=== PATIENT | male | born 1960 | race Hispanic/Latino ===

== ENCOUNTER → 2017-11-08 | Outpatient (CLI) | payer MEDICAID | LOC: RAH 11:30 | PROVIDERS: ATTEND Urology | DX: N20.0 Calculus of kidney (principal); N32.89 Other specified disorders of bladder | CPT/HCPCS: 74176 ==

== ENCOUNTER → 2018-06-18 | Outpatient (CLI) | payer MEDICAID | END | disposition home or self-care (01) | LOC: RAH 11:39 | PROVIDERS: ATTEND Urology | DX: M47.899 Other spondylosis, site unspecified (principal); I25.10 Atherosclerotic heart disease of native coronary artery without angina pectoris | CPT/HCPCS: 74018; 76100 ==

== ENCOUNTER → 2018-11-13 | Outpatient (CLI) | payer MEDICAID | END | disposition home or self-care (01) | LOC: SHCH 14:13 | PROVIDERS: ATTEND Internal Medicine Cardiovascular Disease | DX: I87.2 Venous insufficiency (chronic) (peripheral) (principal) | CPT/HCPCS: 93970 ==

== ENCOUNTER → 2019-05-14 | Outpatient (CLI) | payer MEDICAID | END | disposition home or self-care (01) | LOC: RAH 12:13 | PROVIDERS: ATTEND Urology | DX: N20.0 Calculus of kidney (principal); K80.20 Calculus of gallbladder without cholecystitis without obstruction; K57.30 Diverticulosis of large intestine without perforation or abscess without bleeding | CPT/HCPCS: 74176 ==

== ENCOUNTER → 2019-07-17 | Outpatient (CLI) | payer MEDICAID | END | disposition home or self-care (01) | LOC: RAH 11:38 | PROVIDERS: ATTEND Urology | DX: N20.0 Calculus of kidney (principal) | CPT/HCPCS: 74018; 76100 ==

== ENCOUNTER 2020-03-16 08:19 | Inpatient (IN) | payer MEDICAID ==
[~2020-03-16] VITALS: Ht 167.6 cm; Wt 104.5 kg
[2020-03-16] MEDS ORDERED: ONDANSETRON HCL 4 MG/2 ML VIAL ONE (08:51)
[2020-03-16] MEDS ORDERED: LEVOFLOXACIN 500 MG/D5W 100 ML 100 ML ONE (08:52)
[2020-03-16] MEDS: ASCORBIC ACID 500 MG TAB PO SCH (13:45)
[2020-03-16] MEDS: THIAMINE HCL 100 MG TABLET PO SCH (13:45)
[2020-03-16] MEDS ORDERED: HYDRALAZINE HCL 20 MG/ML VIAL IV PRN (14:00)
[2020-03-16] MEDS ORDERED: THIAMINE HCL 100 MG TABLET ONE (14:04)
[2020-03-16] MEDS ORDERED: METHYLPREDNISOLONE SOD SUCC 40MG/ML 1ML ONE (14:35)
[2020-03-16] MEDS ORDERED: INSULIN GLARGINE 100 UNITS/ML 10 ML VIAL SQ SCH (15:00)
[2020-03-16] MEDS ORDERED: INSULIN HUMULIN R 100 UNIT/ML 3ML ONE (17:42)
[2020-03-16] MEDS ORDERED: METHYLPREDNISOLONE SOD SUCC 40MG/ML 1ML IVP SCH (21:00)
[2020-03-17] MEDS ORDERED: METHYLPREDNISOLONE SOD SUCC 40MG/ML 1ML ONE ×3 (03:58→21:48)
[2020-03-17] MEDS ORDERED: ENOXAPARIN SODIUM 40 MG/0.4 ML SYRINGE SQ ONE ×2 (03:58→08:00)
[2020-03-17] MEDS ORDERED: INSULIN HUMULIN R 100 UNIT/ML 3ML ONE ×2 (03:59→23:10)
[2020-03-17] MEDS ORDERED: LEVOFLOXACIN 500 MG/D5W 100 ML 100 ML ONE (08:00)
[2020-03-17] MEDS ORDERED: THIAMINE HCL 100 MG TABLET ONE (08:00)
[2020-03-17] MEDS ORDERED: INSULIN GLARGINE 100 UNITS/ML 10 ML VIAL SQ SCH (09:00)
--- NOTE | 2020-03-17 10:47 | NUR ---
DCP: HOME Sw unable to meet with pt who is in ER covid unit. Per pt's brother Casey Galloway [phone], pt lives with sister & brother in law Sarah Beth & James Ward. Pt has never or had kids. Pt is on SSD since 2014 and is independent, no in home care services, uses [facility], family or friends transport as needed. PCP is Dr Butler and uses [facility] for rx. Plan is home with family Addendum: 03/17/20 at 1050 by AMANDA PERDUE Amended: Links added.
[2020-03-17] MEDS ORDERED: SODIUM CHLORIDE 0.9% 1000ML 1,000 ML IV ONE (21:46)
[2020-03-18] MEDS ORDERED: METHYLPREDNISOLONE SOD SUCC 40MG/ML 1ML ONE (04:13)
[2020-03-18] MEDS ORDERED: ENOXAPARIN SODIUM 40 MG/0.4 ML SYRINGE SQ ONE (04:13)
[2020-03-18] MEDS ORDERED: THIAMINE HCL 100 MG TABLET ONE (07:44)
[2020-03-18] MEDS ORDERED: LEVOFLOXACIN 500 MG/D5W 100 ML 100 ML ONE (07:45)
[2020-03-18] MEDS: LEVOFLOXACIN 500 MG/D5W 100 ML 100 ML IV SCH (08:00)
[2020-03-18] MEDS: ENOXAPARIN SODIUM 40 MG/0.4 ML SYRINGE SQ SCH (09:00)
[2020-03-18] MEDS: THIAMINE HCL 100 MG TABLET PO SCH ×2 (09:00→13:45)
[2020-03-18] MEDS: METHYLPREDNISOLONE SOD SUCC 40MG/ML 1ML IVP SCH ×2 (09:00→17:48)
[2020-03-18] MEDS: ASCORBIC ACID 500 MG TAB PO SCH ×2 (09:00→13:45)
[2020-03-18] MEDS: INSULIN HUMULIN R 100 UNIT/ML 3ML SQ SCH ×3 (11:30→20:24)
[2020-03-18 14:50] VITALS: BP 156/78; PULSE 84; RESP 20; TEMP 96
[2020-03-18 17:44] VITALS: TEMP 98
[2020-03-18] MEDS: SODIUM CHLORIDE 0.9% 1000ML 1,000 ML IV SCH (17:44)
[2020-03-18 19:30] VITALS: BP 138/78; PULSE 89; RESP 18; TEMP 97.9
--- NOTE | 2020-03-18 20:15 | NUR ---
plasma #1 start first unit of plasma temp 96.9 pulse 87, resp 18 b/p 160/70,sat 94 % on oxygen at 3 l n/c
--- NOTE | 2020-03-18 20:30 | NUR ---
effect temp 96.9 p 86 r 18 b/p 154/80, sat 94 on 3 l n/c
--- NOTE | 2020-03-18 20:34 | NUR ---
b/p b/p 189/84, asymptomatic , hydralazine 10 mg ivp given slowly
--- NOTE | 2020-03-18 21:30 | NUR ---
med effect b/p 155/80
--- NOTE | 2020-03-18 22:15 | NUR ---
post transfusion first unit of plasma complete , no reaction noted, tolerated well, blood bank called for 2 nd unit, temp 96.8 pulse89 r18 b/p 152/84
--- NOTE | 2020-03-18 23:45 | NUR ---
2nd unit plasma started 2nd unit of plasma as ordered, tem p96.8 f pulse 80 r 18 b/p 144/69
[2020-03-19] VITALS (7 sets, daily range): BP systolic 134–175; BP diastolic 67–85; PULSE 65–93; RESP 17–20; TEMP 97–98.4
--- NOTE | 2020-03-19 | NUR ---
effect no reaction noted, tolerating well, temp 97.0 f pulse 82 r 18 b/p 144/83
[2020-03-19] MEDS: METHYLPREDNISOLONE SOD SUCC 40MG/ML 1ML IVP SCH ×3 (00:13→16:09)
--- NOTE | 2020-03-19 01:45 | NUR ---
complete transfusion plasma complete, no reaction noted, temp 96.9, pulse 81/ r 18 b/p 148/80
[2020-03-19] MEDS: INSULIN HUMULIN R 100 UNIT/ML 3ML SQ SCH ×4 (05:50→21:46)
[2020-03-19] MEDS: SODIUM CHLORIDE 0.9% 1000ML 1,000 ML IV SCH ×2 (08:55→16:09)
[2020-03-19] MEDS: LEVOFLOXACIN 500 MG/D5W 100 ML 100 ML IV SCH (09:01)
[2020-03-19] MEDS: ASCORBIC ACID 500 MG TAB PO SCH (09:02)
[2020-03-19] MEDS: THIAMINE HCL 100 MG TABLET PO SCH ×2 (09:02→13:23)
[2020-03-19] MEDS: ENOXAPARIN SODIUM 40 MG/0.4 ML SYRINGE SQ SCH ×2 (10:52→21:48)
--- NOTE | 2020-03-19 12:18 | NUR ---
C consult Spoke with patient's nurse regarding abrasions to bilateral lower extremities. Nurse reports they are scabbed over and without drainage; no wound care required at this time. May reconsult [facility] as needed.
[2020-03-19] MEDS ORDERED: DEXTROSE 50%-WATER 50 ML DISP.SYRIN IV PRN (12:30)
[2020-03-19] MEDS ORDERED: INSULIN GLARGINE 100 UNITS/ML 10 ML VIAL SQ SCH (12:30)
[2020-03-19] MEDS ORDERED: GLUCAGON 1MG KIT 1 MG ML IM PRN (12:30)
[2020-03-19] MEDS ORDERED: INSULIN HUMULIN R 100 UNIT/ML 3ML SQ SCH (17:00)
[2020-03-19] MEDS: INSULIN GLARGINE 100 UNITS/ML 10 ML VIAL SQ SCH (21:47)
[2020-03-20] MEDS: METHYLPREDNISOLONE SOD SUCC 40MG/ML 1ML IVP SCH ×3 (00:16→18:05)
[2020-03-20 03:06] VITALS: BP 152/76; PULSE 67; RESP 17; TEMP 98
[2020-03-20] MEDS: INSULIN GLARGINE 100 UNITS/ML 10 ML VIAL SQ SCH ×2 (05:51→21:50)
[2020-03-20] MEDS: INSULIN HUMULIN R 100 UNIT/ML 3ML SQ SCH ×7 (05:51→21:49)
[2020-03-20 08:00] VITALS: BP 147/80; PULSE 67; RESP 17; TEMP 98.1
[2020-03-20] MEDS: LEVOFLOXACIN 500 MG/D5W 100 ML 100 ML IV SCH (09:32)
[2020-03-20] MEDS: AMLODIPINE BESYLATE 5 MG TAB PO SCH (09:33)
[2020-03-20] MEDS: ASCORBIC ACID 500 MG TAB PO SCH (09:33)
[2020-03-20] MEDS: THIAMINE HCL 100 MG TABLET PO SCH ×2 (09:34→11:47)
[2020-03-20] MEDS: ENOXAPARIN SODIUM 40 MG/0.4 ML SYRINGE SQ SCH (09:34)
[2020-03-20 12:00] VITALS: BP 150/71; PULSE 80; RESP 18; TEMP 98.5
[2020-03-20 16:00] VITALS: BP 142/72; PULSE 84; RESP 17; TEMP 98.4
[2020-03-20 20:42] VITALS: BP 145/85; PULSE 80; RESP 18; TEMP 97.4
[2020-03-20 23:52] VITALS: BP 134/71; PULSE 79; RESP 18; TEMP 97.8
[2020-03-21] MEDS: METHYLPREDNISOLONE SOD SUCC 40MG/ML 1ML IVP SCH ×3 (02:20→17:00)
[2020-03-21 03:50] VITALS: BP 157/75; PULSE 65; RESP 18; TEMP 97.9
[2020-03-21] MEDS: INSULIN HUMULIN R 100 UNIT/ML 3ML SQ SCH ×7 (06:40→21:47)
[2020-03-21] MEDS: INSULIN GLARGINE 100 UNITS/ML 10 ML VIAL SQ SCH ×2 (06:41→21:48)
[2020-03-21 08:46] VITALS: BP 139/92; PULSE 85; RESP 18; TEMP 97.9
[2020-03-21] MEDS: ASCORBIC ACID 500 MG TAB PO SCH (08:54)
[2020-03-21] MEDS: AMLODIPINE BESYLATE 5 MG TAB PO SCH (08:55)
[2020-03-21] MEDS: LEVOFLOXACIN 500 MG/D5W 100 ML 100 ML IV SCH (08:55)
[2020-03-21] MEDS: THIAMINE HCL 100 MG TABLET PO SCH ×2 (08:55→14:32)
[2020-03-21] MEDS ORDERED: ENOXAPARIN SODIUM 40 MG/0.4 ML SYRINGE SQ SCH (09:00)
[2020-03-21] MEDS: ENOXAPARIN SODIUM 60 MG/0.6 ML SQ SCH (09:09)
[2020-03-21 12:48] VITALS: BP 136/83; PULSE 84; RESP 18; TEMP 97.9
[2020-03-21 16:34] VITALS: BP 129/79; PULSE 90; RESP 18; TEMP 97.6
--- NOTE | 2020-03-21 18:55 | NUR ---
COVID+ PT, ISOLATION PRECAUTIONS MAINTAINED. AAOX4. ABLE TO MAKE NEEDS KNOWN. AMBULATES WITH [facility]ALK[facility] WITH STANDBY ASSIST. O2 AT 2L PRN. OOB IN CHAIR AT THIS TIME WATCHING TELEVISION. NO APPARENT DISTRESS NOTED. SAFETY MEASURES IN PLACE. CM CONSULT FOR POSSIBLE NH PLACEMENT.
[2020-03-21 20:14] VITALS: BP 140/77; PULSE 86; RESP 18; TEMP 97.8
[2020-03-21 23:45] VITALS: BP 154/79; PULSE 85; RESP 18; TEMP 98
[2020-03-22] MEDS: METHYLPREDNISOLONE SOD SUCC 40MG/ML 1ML IVP SCH ×3 (00:56→17:00)
[2020-03-22 03:52] VITALS: BP 158/81; PULSE 70; RESP 18; TEMP 98.1
[2020-03-22] MEDS: INSULIN HUMULIN R 100 UNIT/ML 3ML SQ SCH ×6 (06:36→17:00)
[2020-03-22] MEDS: INSULIN GLARGINE 100 UNITS/ML 10 ML VIAL SQ SCH (06:37)
[2020-03-22 08:00] VITALS: BP 163/78; PULSE 91; RESP 17; TEMP 97.7
[2020-03-22] MEDS: ASCORBIC ACID 500 MG TAB PO SCH (09:03)
[2020-03-22] MEDS: AMLODIPINE BESYLATE 5 MG TAB PO SCH (09:03)
[2020-03-22] MEDS: LEVOFLOXACIN 500 MG/D5W 100 ML 100 ML IV SCH (09:03)
[2020-03-22] MEDS: THIAMINE HCL 100 MG TABLET PO SCH (09:03)
[2020-03-22] MEDS: ENOXAPARIN SODIUM 60 MG/0.6 ML SQ SCH (09:04)
[2020-03-22 12:00] VITALS: BP 130/77; PULSE 86; RESP 17; TEMP 98.7
--- NOTE | 2020-03-22 12:30 | NUR ---
SITTING UP IN BED EATING LUNCH, W/O C/O.
--- NOTE | 2020-03-22 17:00 | NUR ---
HL REMOVED, CATHETER INTACT.
--- NOTE | 2020-03-22 17:30 | NUR ---
SITTING UP IN EMERGENCY MANAGEMENT SPECIALIST AT BEDSIDE EATING DINNER W/O C/O. CALL LIGHT WITHIN REACH.
--- NOTE | 2020-03-22 18:05 | NUR ---
DISCHARGE INSTRUCTIONS GIVEN, PT. VERBALIZED UNDERSTANDING. STATES FRIEND WILL BE PICKING HIM UP, BUT HE IS "BUSY RIGHT NOW. HE'LL BE HERE IN A COUPLE OF HOURS."
== END 2020-03-22 21:05 | disposition home or self-care (01) | DRG 137 ==
LOC: EDH 08:19 → EDHIP 08:20 → 4AH 03-18 14:31
PROVIDERS: ADMIT Internal Medicine; ATTEND Internal Medicine
PROC: 30233K1 Transfusion of Nonautologous Frozen Plasma into Peripheral Vein, Percutaneous Approach (ICD-10-PCS; principal; 2020-03-16)
DX: U07.1 COVID-19 (principal); J96.01 Acute respiratory failure with hypoxia; J12.89 Other viral pneumonia; A08.39 Other viral enteritis; E11.65 Type 2 diabetes mellitus with hyperglycemia; J02.0 Streptococcal pharyngitis; E66.01 Morbid (severe) obesity due to excess calories; I10 Essential (primary) hypertension; E78.5 Hyperlipidemia, unspecified; Z68.37 Body mass index [BMI] 37.0-37.9, adult; Z88.6 Allergy status to analgesic agent; Z88.0 Allergy status to penicillin; Z78.9 Other specified health status; Z87.442 Personal history of urinary calculi

== ENCOUNTER → 2021-01-28 | Outpatient (CLI) | payer MEDICAID ==
[~2021-01-28] MED LIST: AMLO5TAB4 PO; ASCO500T20 PO; DEXA6TAB PO; LEVO500T2 PO; THIA100T91 PO
== END | disposition home or self-care (01) ==
LOC: SHCH 09:57
PROVIDERS: ATTEND Internal Medicine Cardiovascular Disease
DX: I87.2 Venous insufficiency (chronic) (peripheral) (principal); I73.9 Peripheral vascular disease, unspecified
CPT/HCPCS: 93925; 93970

== ENCOUNTER 2023-11-18 07:48 | Inpatient (IN) | payer MEDICAID ==
[~2023-11-18] VITALS: Ht 167.6 cm; Wt 104.3 kg
[~2023-11-18 07:48] MED LIST changes: +ALLO100T PO; +ATOR20TA65 PO; +CLOP75TA32 PO; -DEXA6TAB PO; +FURO40TA5 PO; +GABA-529 PO; +INSLAN SQ; -LEVO500T2 PO; +LISI20TA24 PO; +MEMA5TAB42 PO; +METF-446 PO; +METO50TA9 PO; +TAMSULOSIN PO; +VITA200C23 PO; +VITA800012 PO; +ZINC220T4 PO
[2023-11-18 08:14] LABS: BASOPHILS # (AUTO) 0.03 K/uL (0.00-0.20); BASOPHILS % (AUTO) 0.4 % (0.0-5.0); EOSINOPHILS # (AUTO) 0.15 K/uL (0.00-0.70); EOSINOPHILS % (AUTO) 2.2 % (0.0-8.0); HEMATOCRIT 41.7 % (42-54); IMMATURE GRANULOCYTE ABSOLUTE 0.02 K/uL (0-1); LYMPHOCYTES # (AUTO) 0.9 K/uL (1.0-4.8); MEAN CORPUSCULAR HEMOGLOBIN 29.6 pg (27.0-33.0); MEAN CORPUSCULAR HGB CONC 33.1 g/dL (32.0-36.0); MEAN CORPUSCULAR VOLUME 89.5 fL (79-99); MONOCYTES # (AUTO) 0.4 K/uL (0.1-1.0); MONOCYTES % (AUTO) 6.1 % (3.0-13.0); NEUTROPHILS # (AUTO) 5.4 K/uL (1.8-7.7); PLATELET COUNT (AUTO) 208 K/uL (130-400); RED BLOOD CELL COUNT(AUTO) 4.66 MIL/uL (4.50-6.20); RED CELL DISTRIBUTION WIDTH 14.2 % (11.0-15.5); WHITE BLOOD COUNT (AUTO) 6.9 K/uL (4.8-10.8)
[2023-11-18] MEDS: ONDANSETRON 4MG INJ IVP ONE (08:20)
[2023-11-18 08:24] LABS: CREATININE 0.8 mg/dL (0.5-1.5); POTASSIUM 3.8 mmol/L (3.5-5.1)
[2023-11-18 08:29] LABS: BILIRUBIN,TOTAL 0.7 mg/dL (0.2-1.0); TOTAL PROTEIN, SERUM 8.3 g/dL (6.0-8.3)
[2023-11-18] MEDS: METOCLOPRAMIDE 10 MG/2 ML VIAL IM ONE (09:01)
[2023-11-18] MEDS: METOCLOPRAMIDE 10 MG/2 ML VIAL IVP ONE (09:03)
[2023-11-18 10:06] LABS: APPEARANCE,URINE CLOUDY (CLEAR); BILIRUBIN,URINE NEGATIVE (NEGATIVE); COLOR,URINE YELLOW (YELLOW); GLUCOSE, URINE (UA) NEGATIVE (NEGATIVE); KETONES,URINE 20 mg/dL (NEGATIVE); LEUKOCYTE ESTERASE ,URINE 500 Leu/uL (NEGATIVE); NITRATE,URINE NEGATIVE (NEGATIVE); PROTEIN,URINE 100 mg/dL (NEGATIVE)
[2023-11-18 10:08] LABS: ADD UA MICROSCOPIC YES
[2023-11-18 10:23] LABS: BACTERIA,URINE MANY /HPF (None Seen); MUCUS,URINE FEW LPF (None Seen); SQUAMOUS EPITHELIAL CELL,UR RARE /HPF (0-2); WBC,URINE TNTC /HPF (0-1)
[2023-11-18] MEDS: CEFTRIAXONE 2GM VIAL IVPB ONE (11:22)
[2023-11-18] MEDS ORDERED: ACETAMINOPHEN 325 MG TAB PO PRN (11:30)
[2023-11-18] MEDS ORDERED: POTASSIUM CHLORIDE 20MEQ/100ML 100 ML IV PRN (11:30)
[2023-11-18] MEDS ORDERED: ONDANSETRON 4MG INJ IVP PRN (11:30)
[2023-11-18] MEDS: CEFTRIAXONE 1G VIAL IVPB SCH (13:00)
[2023-11-18 14:19] VITALS: BP 146/80; PULSE 84; RESP 17
[2023-11-18 14:22] VITALS: O2SAT 97
[2023-11-18 16:00] VITALS: BP 149/75; PULSE 69; RESP 17
[2023-11-18] MEDS ORDERED: ATEN25TA PO (18:43)
[2023-11-18] MEDS ORDERED: DOCU100C33 PO (18:46)
[2023-11-18] MEDS ORDERED: FINA5TAB41 PO (18:47)
[2023-11-18 20:00] VITALS: BP 133/68; PULSE 89; RESP 17
[2023-11-18] MEDS: ATENOLOL 25 MG TABLET PO SCH (20:24)
[2023-11-18] MEDS: GABAPENTIN 100 MG CAPSULE PO SCH (20:24)
[2023-11-18] MEDS: FAMOTIDINE 20MG TAB PO SCH (20:24)
[2023-11-18] MEDS: ATORVASTATIN 20 MG TABLET PO SCH (20:24)
[2023-11-18 20:25] VITALS: O2SAT 97
[2023-11-19] VITALS (8 sets, daily range): BP systolic 123–152; BP diastolic 44–93; PULSE 73–89; RESP 16–20; O2SAT 94–95
[2023-11-19 04:55] LABS: BASOPHILS # (AUTO) 0.04 K/uL (0.00-0.20); BASOPHILS % (AUTO) 0.6 % (0.0-5.0); EOSINOPHILS % (AUTO) 4.5 % (0.0-8.0); HEMATOCRIT 37.4 % (42-54); IMMATURE GRANULOCYTE ABSOLUTE 0.03 K/uL (0-1); LYMPHOCYTES # (AUTO) 1.4 K/uL (1.0-4.8); LYMPHOCYTES % (AUTO) 20.7 % (21.0-51.0); MEAN CORPUSCULAR HEMOGLOBIN 29.8 pg (27.0-33.0); MEAN CORPUSCULAR HGB CONC 32.6 g/dL (32.0-36.0); MEAN CORPUSCULAR VOLUME 91.4 fL (79-99); MONOCYTES # (AUTO) 0.6 K/uL (0.1-1.0); MONOCYTES % (AUTO) 8.8 % (3.0-13.0); NEUTROPHILS # (AUTO) 4.3 K/uL (1.8-7.7); PLATELET COUNT (AUTO) 191 K/uL (130-400); RED BLOOD CELL COUNT(AUTO) 4.09 MIL/uL (4.50-6.20); WHITE BLOOD COUNT (AUTO) 6.7 K/uL (4.8-10.8)
[2023-11-19 05:11] LABS: ALBUMIN 3.1 g/dL (3.5-5.0); BILIRUBIN,TOTAL 0.5 mg/dL (0.2-1.0); CREATININE 0.9 mg/dL (0.5-1.5); MAGNESIUM 1.8 mg/dL (1.80-2.40); POTASSIUM 3.4 mmol/L (3.5-5.1); TOTAL PROTEIN, SERUM 6.8 g/dL (6.0-8.3)
[2023-11-19] MEDS: KCL 20 MEQ ERTAB PO PRN (05:41)
[2023-11-19] MEDS: MAGNESIUM 2GM PREMIX 50ML 50 ML IV PRN (05:41)
[2023-11-19] MEDS: DOCUSATE SODIUM 100 MG CAP PO SCH (08:44)
[2023-11-19] MEDS: METFORMIN HCL 850 MG TABLET PO SCH (08:44)
[2023-11-19] MEDS: INSULIN GLARGINE 100 UNITS/ML 10 ML VIAL SQ SCH (08:44)
[2023-11-19] MEDS: FINASTERIDE 5 MG TABLET PO SCH (08:45)
[2023-11-19] MEDS: LISINOPRIL 20 MG TABLET PO SCH (08:45)
[2023-11-19] MEDS: ALLOPURINOL 100 MG TABLET PO SCH (08:45)
[2023-11-19] MEDS: CLOPIDOGREL 75MG TAB PO SCH (08:45)
[2023-11-19] MEDS: TAMSULOSIN HCL 0.4 MG CAP.ER.24H PO SCH (08:45)
[2023-11-19] MEDS: ENOXAPARIN SODIUM 30 MG/0.3 ML SQ SCH (08:46)
[2023-11-19] MEDS: 0.9%NACL 1000ML 1,000 ML IV SCH (17:02)
[2023-11-20] VITALS (7 sets, daily range): BP systolic 134–169; BP diastolic 54–96; PULSE 64–71; RESP 17–20; O2SAT 95
[2023-11-20 05:07] LABS: BASOPHILS # (AUTO) 0.04 K/uL (0.00-0.20); BASOPHILS % (AUTO) 0.6 % (0.0-5.0); EOSINOPHILS # (AUTO) 0.33 K/uL (0.00-0.70); EOSINOPHILS % (AUTO) 5.1 % (0.0-8.0); HEMATOCRIT 36.8 % (42-54); IMMATURE GRANULOCYTE ABSOLUTE 0.03 K/uL (0-1); LYMPHOCYTES # (AUTO) 1.5 K/uL (1.0-4.8); LYMPHOCYTES % (AUTO) 22.8 % (21.0-51.0); MEAN CORPUSCULAR HEMOGLOBIN 29.4 pg (27.0-33.0); MEAN CORPUSCULAR HGB CONC 32.1 g/dL (32.0-36.0); MEAN CORPUSCULAR VOLUME 91.8 fL (79-99); MONOCYTES # (AUTO) 0.5 K/uL (0.1-1.0); MONOCYTES % (AUTO) 7.9 % (3.0-13.0); NEUTROPHILS # (AUTO) 4.1 K/uL (1.8-7.7); NEUTROPHILS % (AUTO) 63.1 % (40.0-77.0); PLATELET COUNT (AUTO) 178 K/uL (130-400); RED BLOOD CELL COUNT(AUTO) 4.01 MIL/uL (4.50-6.20); RED CELL DISTRIBUTION WIDTH 14.1 % (11.0-15.5); WHITE BLOOD COUNT (AUTO) 6.5 K/uL (4.8-10.8)
[2023-11-20 05:37] LABS: ALBUMIN 2.9 g/dL (3.5-5.0); BILIRUBIN,TOTAL 0.3 mg/dL (0.2-1.0); CREATININE 0.7 mg/dL (0.5-1.5); MAGNESIUM 2.1 mg/dL (1.80-2.40); POTASSIUM 3.7 mmol/L (3.5-5.1); TOTAL PROTEIN, SERUM 6.5 g/dL (6.0-8.3)
[2023-11-20] MEDS: INSULIN HUMULIN R 100 UNIT/ML 3ML SQ SCH (16:30)
[2023-11-21] VITALS (7 sets, daily range): BP systolic 132–158; BP diastolic 55–81; PULSE 67–79; RESP 17–20; O2SAT 95
[2023-11-21 06:03] LABS: HEMATOCRIT 36.6 % (42-54); MEAN CORPUSCULAR HEMOGLOBIN 28.9 pg (27.0-33.0); MEAN CORPUSCULAR HGB CONC 32.8 g/dL (32.0-36.0); MEAN CORPUSCULAR VOLUME 88.2 fL (79-99); RED BLOOD CELL COUNT(AUTO) 4.15 MIL/uL (4.50-6.20); RED CELL DISTRIBUTION WIDTH 13.8 % (11.0-15.5); WHITE BLOOD COUNT (AUTO) 7.9 K/uL (4.8-10.8)
[2023-11-21 06:21] LABS: CREATININE 0.8 mg/dL (0.5-1.5); MAGNESIUM 1.6 mg/dL (1.80-2.40); POTASSIUM 3.5 mmol/L (3.5-5.1)
[2023-11-21 19:08] LABS: INR 0.94 (0.85-1.15); PROTHROMBIN TIME 10.9 SEC (9.6-11.6)
[2023-11-21 19:09] LABS: PARTIAL THROMBOPLASTIN TIME 29.2 SEC (26.3-35.5)
[2023-11-22] VITALS (9 sets, daily range): BP systolic 106–146; BP diastolic 48–83; PULSE 70–81; RESP 16–18; O2SAT 95
[2023-11-22 05:14] LABS: BASOPHILS # (AUTO) 0.03 K/uL (0.00-0.20); BASOPHILS % (AUTO) 0.4 % (0.0-5.0); EOSINOPHILS # (AUTO) 0.39 K/uL (0.00-0.70); EOSINOPHILS % (AUTO) 4.9 % (0.0-8.0); HEMATOCRIT 38.1 % (42-54); IMMATURE GRANULOCYTE ABSOLUTE 0.04 K/uL (0-1); LYMPHOCYTES # (AUTO) 1.3 K/uL (1.0-4.8); LYMPHOCYTES % (AUTO) 16.3 % (21.0-51.0); MEAN CORPUSCULAR HEMOGLOBIN 29.2 pg (27.0-33.0); MEAN CORPUSCULAR HGB CONC 33.3 g/dL (32.0-36.0); MEAN CORPUSCULAR VOLUME 87.6 fL (79-99); MONOCYTES # (AUTO) 0.4 K/uL (0.1-1.0); MONOCYTES % (AUTO) 5.2 % (3.0-13.0); NEUTROPHILS # (AUTO) 5.8 K/uL (1.8-7.7); NEUTROPHILS % (AUTO) 72.7 % (40.0-77.0); PLATELET COUNT (AUTO) 195 K/uL (130-400); RED BLOOD CELL COUNT(AUTO) 4.35 MIL/uL (4.50-6.20); RED CELL DISTRIBUTION WIDTH 13.5 % (11.0-15.5)
[2023-11-22 05:20] LABS: CREATININE 0.6 mg/dL (0.5-1.5); MAGNESIUM 1.9 mg/dL (1.80-2.40); POTASSIUM 3.4 mmol/L (3.5-5.1)
[2023-11-22] MEDS: POTASSIUM CHLORIDE 10% ELIXIR 20 MEQ/15 ML UDCUP PO PRN (05:45)
[2023-11-23 04:00] VITALS: BP 142/70; PULSE 71; RESP 20
[2023-11-23 08:00] VITALS: BP 134/48; PULSE 74; RESP 19; O2SAT 94
== END 2023-11-23 11:50 | DRG 463 ==
LOC: EDH 07:48 → EDHIP 07:49 → 3AH 13:10
PROVIDERS: ADMIT Internal Medicine Infectious Disease; ATTEND Internal Medicine Infectious Disease
DX: N39.0 Urinary tract infection, site not specified (principal); E11.43 Type 2 diabetes mellitus with diabetic autonomic (poly)neuropathy; G30.9 Alzheimer's disease, unspecified; K31.84 Gastroparesis; F02.80 Dementia in other diseases classified elsewhere, unspecified severity, without behavioral disturbance, psychotic disturbance, mood disturbance, and anxiety; E78.00 Pure hypercholesterolemia, unspecified; B96.20 Unspecified Escherichia coli [E. coli] as the cause of diseases classified elsewhere; W18.39XA Other fall on same level, initial encounter; N20.0 Calculus of kidney; K80.20 Calculus of gallbladder without cholecystitis without obstruction; I10 Essential (primary) hypertension; K57.30 Diverticulosis of large intestine without perforation or abscess without bleeding; K40.90 Unilateral inguinal hernia, without obstruction or gangrene, not specified as recurrent; K42.9 Umbilical hernia without obstruction or gangrene; S80.211A Abrasion, right knee, initial encounter; S80.212A Abrasion, left knee, initial encounter; N40.0 Benign prostatic hyperplasia without lower urinary tract symptoms; Z87.442 Personal history of urinary calculi; Y93.89 Activity, other specified; Y92.89 Other specified places as the place of occurrence of the external cause; Y99.8 Other external cause status
CPT/HCPCS: 36415; 36569; 74176; 80048; 80053; 81001; 82948; 83036; 83605; 83690; 83735; 84484; 85025; 85027; 85610; 85730; 87040; 87077; 87088; 87186; 93005; 93970; 96365; 96374; 96375; C1894; G0378; J0696; J1650; J1815; J2405; J2765; J3475